=== PATIENT | male | born 1970 | race Caucasian/White ===

== ENCOUNTER 2020-09-17 15:54 | Emergency (ER) | payer OTHER | END 2020-09-17 18:16 | disposition home or self-care (01) | LOC: FER 15:54 | DX: S06.0X9A Concussion with loss of consciousness of unspecified duration, initial encounter (principal); S00.03XA Contusion of scalp, initial encounter; I10 Essential (primary) hypertension; G47.33 Obstructive sleep apnea (adult) (pediatric); Z99.89 Dependence on other enabling machines and devices; W17.89XA Other fall from one level to another, initial encounter; Y92.410 Unspecified street and highway as the place of occurrence of the external cause; Z79.899 Other long term (current) drug therapy; Z23 Encounter for immunization | CPT/HCPCS: 70450; 72125; 90471; 90715; J1885 ==